=== PATIENT | female | born 1975 | race Caucasian/White ===

== ENCOUNTER 2016-12-13 10:56 | Observation (INO) | payer OTHER ==
[~2016-12-13] VITALS: Ht 177.8 cm; Wt 88.1 kg
[2016-12-13 11:39] LABS: HEMOGLOBIN 16.9 gm/dl (12.3-15.3); RED BLOOD COUNT 5.4 M/UL (4.00-5.10)
[2016-12-13 12:02] LABS: BUN/CREATININE RATIO 8 (0-10)
[2016-12-13] MEDS ORDERED: LISINOPRIL5 MG PO (21:49)
[2016-12-14 04:25] LABS: HEMOGLOBIN 14.9 gm/dl (12.3-15.3); RED BLOOD COUNT 4.74 M/UL (4.00-5.10); WHITE BLOOD COUNT 2.7 K/UL (4.5-11.0)
[2016-12-14 04:27] LABS: BUN/CREATININE RATIO 10 (0-10)
[2016-12-15 04:28] LABS: HEMOGLOBIN 13.5 gm/dl (12.3-15.3); RED BLOOD COUNT 4.31 M/UL (4.00-5.10); WHITE BLOOD COUNT 6.1 K/UL (4.5-11.0)
[2016-12-15] MEDS ORDERED: NICOTINE PATCH1 EAC1 TD (16:20)
[2016-12-15] MEDS ORDERED: PROVENTIL HFA 61 INH INH (16:21)
[2016-12-15] MEDS ORDERED: LEVAQUIN TAB 2250 MG PO (16:21)
[2016-12-15] MEDS ORDERED: PREDNISONE 20 M20 MG PO (16:22)
== END 2016-12-15 16:36 | disposition home or self-care (01) ==
LOC: ER1 10:56 → MED SURG 4 15:25 → ZEROF 15:25 → MED SURG 4 20:40
PROVIDERS: Emergency Medicine; ADMIT Internal Medicine
DX: J18.9 Pneumonia, unspecified organism (principal); J11.1 Influenza due to unidentified influenza virus with other respiratory manifestations; D72.819 Decreased white blood cell count, unspecified; R11.2 Nausea with vomiting, unspecified; D69.6 Thrombocytopenia, unspecified; E87.2 Acidosis; I10 Essential (primary) hypertension; F12.10 Cannabis abuse, uncomplicated; F17.210 Nicotine dependence, cigarettes, uncomplicated; Z82.49 Family history of ischemic heart disease and other diseases of the circulatory system; Z91.018 Allergy to other foods; Z79.899 Other long term (current) drug therapy
CPT/HCPCS: 36415; 36600; 71010; 71020; 80048; 80053; 81001; 82550; 82553; 82607; 82803; 83735; 83874; 84439; 84443; 84484; 84703; 85025; 85379; 87040; 93005; 96365; 96366; 96375; 99285; G0378; J1956; J2405; J2930; J7030